=== PATIENT | female | born 1960 | race African-American/Black ===

== ENCOUNTER → 2017-04-02 | Outpatient (CLI) | payer OTHER ==
[~2017-04-02] MED LIST: ASPI-110 PO; ATEN50TA PO; CHOL100025 CHEW; HYDR-3583 PO; HYDR25TA5 PO; LOSA50TA PO; WALKER WHEELS/F1 MIS
== END ==
LOC: CPRE 12:05
PROVIDERS: ATTEND Neurological Surgery
DX: M50.10 Cervical disc disorder with radiculopathy, unspecified cervical region (principal); M48.02 Spinal stenosis, cervical region; M50.30 Other cervical disc degeneration, unspecified cervical region; M47.12 Other spondylosis with myelopathy, cervical region

== ENCOUNTER 2017-04-05 05:43 | Observation (INO) | payer OTHER ==
--- NOTE | 2017-04-04 18:33 | MH ---
cc: MANI URIBE ROHIT K. M.D. STALEY, TYLER J. MD DATE OF ADMISSION 04/05/2017 ADMISSION DIAGNOSIS Cervical spinal stenosis. HISTORY OF PRESENT ILLNESS This is a 56-year-old female who presented to us for an evaluation of neck and low back pain. She has had neck pain for 2 years, progressively getting worse. She states that the neck pain radiates into the head and causes headaches. She denies any radiculopathy in the upper extremities. She does state that she has paresthesias in the left lateral arm into the fingers, primarily the first through the fourth fingers with the thumb being the worst. She is right-handed. She has been to physical therapy 5 months ago which did not help. She states that she drops stuff with the left hand for the last 2 years. She has felt off balance and states that her left leg is numb also. She complains of low back pain for the last 2 years, progressively getting worse. She denies any radiculopathy in the lower extremities. She states that the pain does extend into bilateral upper buttocks area. She has paresthesias in the left lateral leg to the ankle. She states that she wears pads for urinary leakage for the last year. Her low back pain improves with lying down. She has had physical therapy for low back. She has been to pain management to do the injections in her back and states that she did not like this because she is prediabetic and she was very hungry after the injections and had some weight gain associated with this. She states her legs do feel weak and sometimes the left one dulce on her. She also complains of chronic left knee pain and uses a cane to ambulate, although, states that she uses a walker for better gait control. PAST MEDICAL HISTORY Significant for sleep apnea, hypertension. Knee surgery. CURRENT MEDICATIONS 1. She takes atenolol 50 milligrams b.i.d. 2. Hydrochlorothiazide 25 milligrams daily. 3. B3 5000 international units daily. ALLERGIES She has no known drug allergies. FAMILY HISTORY Her father is at [id number], had cancer. Her mother is at [id number], had kidney disease. She has a brother who is at 17-miohy-yir of myocardial infarction. She has two sisters alive and two brothers that are alive. SOCIAL HISTORY She has two children. She lives alone. She does not smoke. She does not drink alcohol. REVIEW OF SYSTEMS CONSTITUTIONAL: She denies any fever or chills. EARS/NOSE/THROAT: No pharyngitis, exudates or bloody drainage from her nose. CARDIOVASCULAR: She denies any chest pain or palpitations. RESPIRATORY: No cough or shortness of breath. GENITOURINARY: No dysuria or urgency. Positive for urinary frequency. MUSCULOSKELETAL: Positive for neck and low back pain. SKIN: Positive for rash and itching. NEUROLOGIC: No difficulty with speech or memory. GASTROINTESTINAL: No nausea, vomiting, abdominal pain. PSYCHIATRIC: Positive for depression symptoms. No anxiety. ENDOCRINE: No polydipsia. Positive for polyuria. HEMATOLOGIC: Positive for bruising tendencies but no bleeding tendencies. PHYSICAL EXAMINATION HEAD: Normocephalic, atraumatic. NECK: Supple. No carotid bruits heard on auscultation. LUNGS: Clear to auscultation bilaterally. HEART: Regular rate and rhythm, normal S1-S2. ABDOMEN: Soft, positive bowel sounds. She is obese. SKIN: Reveals no cyanosis or erythema. MUSCULOSKELETAL: She has left iliopsoas weakness at 3-/5. Otherwise, her strength is 5/5 in the lower extremities. She has 5/5 strength in the upper extremities. NEUROLOGIC: She is awake, alert and oriented. Cranial nerves II-XII are grossly intact. Her speech is fluent. Comprehension is good. Sensation is decreased diffusely in the left upper extremity and left lower extremity in a nondermatomal pattern, otherwise, intact. Reflexes are 2+ in the upper extremities. Patellar reflexes are diminished bilaterally. Achilles reflexes are 2+ bilaterally. DATA REVIEWED MRI of the cervical spine from July 04, 2016 was reviewed with the patient. She has severe C4/C5 spinal stenosis with cord compression and associated T2-weighted myelomalacia from a disk osteophyte complex. She has moderate C5-C6 and C6-C7 stenosis although no cord compression is noted. Lumbar spine MRI from 07/04/2016 was reviewed which shows mild disk degeneration at L4-L5, L5-S1 levels without any significant spinal stenosis. IMPRESSION A 56-year-old female with progressive cervical myelopathy that she has had for 2 years with the weakness and unsteadiness and incontinence including neck pain and back pain. She has a C4-C5 stenosis with spinal cord compression with associated myelomalacia of the cord from a disk osteophyte complex. She has a lesser degree of stenosis noted at the C5-C6 and C6-C7 levels. She has mild L4-L5, L5-S1 degenerative disk disease and lumbar spine with no significant lumbar stenosis. She has failed conservative measures including physical therapy and interventional pain management. PLAN We have discussed procedure in detail which would require an anterior C4-C5 microsurgical diskectomy with fusion. We have discussed the risks along with surgery which include but no limited to bleeding, infection, muscle weakness, voice hoarseness, difficulty swallowing, heart attack, stroke blood clots, nonfusion, scar tissue formation among others. She understands that the goal of surgery for spinal cord decompression to prevent further progression of the myelopathy or spinal cord injury with any ___. She states that she will likely not be pain free since there are degenerative changes involving other levels. We have discussed the procedure using spine models in the office and all of her questions were answered to her satisfaction and no guarantees were given. She understands the risk of worsening sleep apnea, dysphagia, hoarseness, among other complications. Her lumbar spine at this point does not require any surgical intervention. The patient is requesting that we proceed, understanding the procedure as well as the risks involved and she was therefore scheduled accordingly. Dictated by: Adonis Mahmood PA-C MD ENA Savage/STEFANIA /5:53 PM /6:15 PM
[~2017-04-05] VITALS: Ht 167.6 cm; Wt 133.4 kg
[~2017-04-05 05:43] MED LIST changes: -ASPI-110 PO; -HYDR-3583 PO; -LOSA50TA PO; -WALKER WHEELS/F1 MIS
[2017-04-05] MEDS ORDERED: LACTATED RINGER'S 1000 ML IV PRN (06:30)
[2017-04-05] MEDS ORDERED: METOPROLOL TARTRATE 25 MG TAB PO PRN (06:30)
[2017-04-05] MEDS ORDERED: VANCOMYCIN HCL 1000 MG ON-CALL/NS 250 ML IV SCH ×2 (06:30)
[2017-04-05] MEDS ORDERED: SODIUM CHLOR 0.9% 1000 ML INJ 1,000 ML IV SCH (06:30)
[2017-04-05] MEDS ORDERED: POVIDONE IODINE 5% (ANTISEPSIS KIT) 4 APPLICATIONS EACH NARE PRN (06:30)
[2017-04-05] MEDS ORDERED: SODIUM CHLORID 0.9% 500 ML IV PRN (06:30)
[2017-04-05] MEDS ORDERED: CHLORHEXIDINE GLUCONATE 2 % 1 PACK (2 CLOTHS) TOPICAL PRN (06:30)
[2017-04-05] MEDS ORDERED: INSULIN HUMAN REGULAR 1,000 UNITS/10 ML VIAL SQ PRN (06:30)
[2017-04-05] MEDS ORDERED: VANCOMYCIN HCL 1000 MG VIAL ONE (06:54)
[2017-04-05] MEDS ORDERED: THROMBIN (TOPICAL) 5,000 UNIT VIAL ONE (06:54)
[2017-04-05] MEDS ORDERED: GELFOAM SIZE 100 ONE (06:55)
[2017-04-05 07:02] VITALS: BP 164/88; PULSE 58; RESP 20; TEMP 99.5; O2SAT 99
[2017-04-05] MEDS ORDERED: FAMOTIDINE 20 MG/2 ML VIAL ONE (08:17)
[2017-04-05] MEDS ORDERED: MIDAZOLAM HCL 2 MG/2 ML VIAL ONE (08:18)
[2017-04-05] MEDS ORDERED: ACETAMINOPHEN 1000 MG/100 ML VIAL IV ONE (08:18)
[2017-04-05] MEDS ORDERED: BUPIVACAINE/EPINEPHRINE 0.5% PF 30 ML VIAL INFIL ONE (09:44)
[2017-04-05] MEDS ORDERED: PROPOFOL 500 MG/50 ML BTL IV ONE (12:00)
[2017-04-05] MEDS ORDERED: LACTATED RINGER'S 1000 ML INJ 2,000 ML IV ONE (12:00)
[2017-04-05] MEDS ORDERED: PROPOFOL 200 MG/20 ML AMP IV ONE (12:00)
[2017-04-05] MEDS ORDERED: ONDANSETRON HCL 4 MG/2 ML VIAL IV PUSH ONE (12:00)
[2017-04-05] MEDS ORDERED: NEOSTIGMINE 3 MG/3 ML SYR IV ONE (12:00)
[2017-04-05] MEDS ORDERED: NS + KCL 20 MEQ INJ 1,000 ML IV SCH (12:03)
[2017-04-05] MEDS ORDERED: DO NOT ADM ANY ANTICOAGULANT DRUGS PRN (12:05)
--- NOTE | 2017-04-05 12:08 | RADRPT ---
EXAM DATE/TIME: 04/05/2017 09:21 [facility] COMPARISON: No previous studies available for comparison. INDICATIONS : C4-C5 anterior cervical fusion. Level localization. MEDICAL HISTORY : None. SURGICAL HISTORY : None. ENCOUNTER: Initial ACUITY: 1 day PAIN SCORE: Non-responsive. LOCATION: neck CONCLUSION: Lateral fluoroscopic view demonstrates temporary probe along the superior endplate anteriorly at C5. Adonis Vera MD on April 05, 2017 at 12:07 Board Certified Radiologist. This report was verified electronically.
--- NOTE | 2017-04-05 12:09 | RADRPT ---
EXAM DATE/TIME: 04/05/2017 09:21 [facility] COMPARISON: No previous studies available for comparison. INDICATIONS : Post-op C4-C5 anterior cervical fusion. MEDICAL HISTORY : None. SURGICAL HISTORY : None. ENCOUNTER: Initial ACUITY: 1 day PAIN SCORE: Non-responsive. LOCATION: neck CONCLUSION: Fluoroscopic images during placement of anterior fusion plate and intervertebral disc device at C4-5. Adonis Vera MD on April 05, 2017 at 12:07 Board Certified Radiologist. This report was verified electronically.
--- NOTE | 2017-04-05 12:12 | PD.OP ---
DO Gutierrez Peng MD Operative Report Date of Surgery: Apr 05, 2017 Preoperative Diagnosis: Severe C4-5 spinal cord compression with the myelopathy from a disc osteophyte complex Postoperative Diagnosis: Same Procedure: Anterior cervical C4-5 microdiscectomy with interbody fusion; anterior C4-5 cervical plate placement; C4-5 interbody cage placement; microsurgical technique Anesthesia: Gen. endotracheal by Andrés Frost Surgeon: Vick Bautista M.D. Rf Microwave Engineer(s): Claribel Dhaliwal Operation and Findings: Following administration of general endotracheal anesthesia with the neck maintained neutral position in a Goodhue collar, the patient received a gram of vancomycin and Decadron 10 mg intravenously. Sequential compression devices were placed in supine position on a Cuco table and all pressure points adequately padded. The head secured in a donut and anterior cervical region then shaved and prepped with Chloraprep and sterilely draped with Ioban along with the usual sterile draping. A transverse skin incision on the left side of the neck was then made after infiltrating the skin with 0.5% Marcaine with epinephrine solution extending down through the platysma. At the anterior border of the sternocleidomastoid further dissection was undertaken developing a plane between the carotid sheath laterally and the trachea esophagus medially. The prevertebral fascia was exposed and dissected out. The medial attachments of the longus colli muscles were detached and a self-retaining retractor used for exposure. Given her obesity and short neck this exposure was difficult. The C4-5 disc space was localized with a marking the disc space and using lateral fluoroscopy. [place]atham distraction screws 14 mm length were placed one in the C4 and one in the C5 body interbody distraction and exposure. There was significant disc degeneration with disc height collapse and anterior osteophytes noted at the C4-5 level and the osteophytes were resected with a Leksell and annulus incised with a 15 blade and further dissection undertaken using microtechnique with microscope magnification. Diskectomy was undertaken with pituitaries and the endplates were also decorticated with curettes and drill bit. And more posteriorly there was disk osteophyte complex significantly compressing the thecal sac along with a significant uncovertebral joint hypertrophy with foraminal stenosis which was decompressed along with removal of the posterior longitudinal ligaments at both levels. The foramen was decompressed bilaterally using a Kerrison's and palpation with a nerve hook, the exiting nerve roots were felt to be free. The area was then copiously irrigated. I then placed a Peek cage packed with local autograft bone at the C4 -5 interspace under fluoroscopy guidance. Chatham distraction pins were removed and the holes plugged with Gelfoam for hemostasis. In order to facilitate the fusion and provide stabilization, a Precision spine cervical plate was then placed with two 14 mm variable angle screws in the C4 body and two 14 mm fixed angle screws in the C5 body. The plate screw locking mechanism was then engaged. AP and lateral fluoroscopy confirmed good placement of the construct and the retractor was then removed. Muscular bleeding points were cauterized with bipolar cautery and Gelfoam was then also used for hemostasis which was removed. The platysma was then approximated using 3-0 Vicryl interrupted stitches and 3-0 Vicryl subcuticular stitch also placed in an interrupted fashion, and final skin closure was with Mastisol and Steri-Strips. Sterile dressing was then applied. The patient was then extubated and taken to the recovery room. There are no intraoperative complications and all sponge and needle counts were correct at the end of procedure. Estimated blood loss was about 100 cc. The patient did undergo intraoperative neurologic monitoring which remained stable throughout the surgery. Vick Bautista MD Apr 05, 2017 12:12
[2017-04-05] MEDS ORDERED: MAGNESIUM HYDROXIDE SUSP 30 ML CUP PO PRN (12:15)
[2017-04-05] MEDS ORDERED: ACETAMINOPHEN/HYDROcodone 325 MG/10 MG TAB PO PRN ×2 (12:15)
[2017-04-05] MEDS ORDERED: METOCLOPRAMIDE HCL 10 MG/2 ML VIAL IVS PRN (12:15)
[2017-04-05] MEDS ORDERED: RESP: ALBUTEROL 2.5 MG/3 ML NEB (PRN) NEB (12:15)
[2017-04-05] MEDS ORDERED: CYCLOBENZAPRINE HCL 10 MG TAB PO PRN (12:15)
[2017-04-05] MEDS ORDERED: MORPHINE SULFATE 4 MG/ML INJ IV PRN (12:15)
[2017-04-05] MEDS ORDERED: ACETAMINOPHEN 325 MG TAB PO PRN (12:15)
[2017-04-05] MEDS ORDERED: ONDANSETRON HCL 4 MG/2 ML VIAL IV PRN (12:15)
[2017-04-05] MEDS ORDERED: MENTHOL LOZENGE BUCCAL PRN (12:15)
[2017-04-05] MEDS ORDERED: cloNIDine HCL 0.1 MG TAB PO PRN (12:15)
[2017-04-05] MEDS ORDERED: SODIUM CHLORIDE 0.9% FLUSH 10 ML FLUSH IV FLUSH PRN (12:15)
[2017-04-05] MEDS ORDERED: ALUMINUM/MAGNESIUM/SIMETH 30 ML CUP PO PRN (12:15)
[2017-04-05 14:00] VITALS: BP 184/98; PULSE 63; RESP 17; TEMP 95.9; O2SAT 91
[2017-04-05] MEDS ORDERED: *morphine SULFATE 8 MG/ML PERIprocedure ONLY ONE (14:25)
[2017-04-05] MEDS: DEXAMETHASONE SOD PHOS 4 MG/ML VIAL IV SCH ×2 (15:00→21:00)
[2017-04-05] MEDS ORDERED: fentaNYL CITRATE 250 MCG/5 ML AMP ONE (15:32)
[2017-04-05 17:27] VITALS: O2SAT 92
[2017-04-05 19:40] VITALS: BP 189/94; PULSE 57; RESP 16; TEMP 97.7; O2SAT 98
[2017-04-05] MEDS ORDERED: ZOLPIDEM TARTRATE 5 MG TAB PO PRN (21:00)
[2017-04-06] VITALS: BP 161/84; PULSE 54; RESP 17; TEMP 96.2; O2SAT 95
[2017-04-06] MEDS: DOCUSATE SODIUM 100 MG CAP PO SCH ×2 (00:08→09:26)
[2017-04-06] MEDS: ATENOLOL 50 MG TAB PO SCH ×2 (00:08→09:26)
[2017-04-06] MEDS: SODIUM CHLORIDE 0.9% FLUSH 10 ML FLUSH IV FLUSH SCH ×2 (00:09→09:00)
[2017-04-06] MEDS: DEXAMETHASONE SOD PHOS 4 MG/ML VIAL IV SCH (03:00)
[2017-04-06 04:00] VITALS: BP 142/78; PULSE 55; RESP 16; TEMP 97.3; O2SAT 95
[2017-04-06 08:00] VITALS: BP 152/84; PULSE 66; RESP 19; TEMP 96.9; O2SAT 100
[2017-04-06] MEDS ORDERED: HYDROCHLOROTHIAZIDE 25 MG TAB PO SCH (09:00)
[2017-04-06] MEDS ORDERED: PANTOPRAZOLE SOD 40 MG DELAYED RELEASE TAB PO SCH (09:00)
[2017-04-06 11:29] VITALS: BP 129/75; PULSE 60; RESP 19; TEMP 96.6; O2SAT 98
--- NOTE | 2017-04-06 12:38 | HHI.NSPN ---
History Chief Complaint: Mild incisional soreness. Interval History 04/06/17: Pt underwent a C4/C5 anterior cervical fusion on 04/05/17. She has mild incisional soreness. She states the paresthesias in her left hand are improving. She states she has paresthesias in her left leg that are stable. She states she is ambulating independently with a walker. She is requesting discharge home. Review of Systems General: Negative for: fever, chills, insomnia Respiratory: Negative for: shortness of breath, cough, sputum Cardiovascular: Negative for: chest pain Gastrointestinal: Negative for: nausea, vomitting, diarrhea, constipation Exam Results Vital Signs Date Time Temp Pulse Resp B/P Pulse Ox O2 Delivery O2 Flow Rate FiO2 04/06/17 11:29 96.6 60 19 129/75 98 04/05/17 21:58 21 04/05/17 17:27 cpap 04/05/17 14:30 2 Intake and Output 04/05/17 04/05/17 04/06/17 08:00 16:00 00:00 Intake Total 2250 ml 480 ml Output Total 250 ml Balance 2000 ml 480 ml Physical Examination Resp: CTA bilaterally Heart: NSR no murmurs Abd: Soft positive bs Skin: No cyanosis or erythema. No signs of infection. New bandage place. Muscle: Moves all 4 extremities with good strength. Neuro: Pt awake and alert. Follows commands well. Speech clear and appropriate. Lab, Micro, Other Results Last Impressions Cervical Spine X-Ray 04/05/17 0000 Signed Impressions: Service Date/Time: March 09:21 - CONCLUSION: Lateral fluoroscopic view demonstrates temporary probe along the superior endplate anteriorly at C5. Adonis Vera MD 04/05/17 04/05/17 04/06/17 14:59 22:59 06:59 Intake Total 2000 ml 730 ml 360 ml Output Total 250 ml Balance 1750 ml 730 ml 360 ml Intake Oral 480 ml 360 ml IV Total 250 ml Other 2000 ml Output Estimated Blood Loss 250 ml # Voids 3 1 2 Medical Decision Making Impression and Plan A: 56 y/o FM s/p C4/C5 ACF with plate placement. P: Discharge pt home Discussed incision care Discussed restrictions Follow up as scheduled in 6 weeks with xrays prior to visit. Adonis Mahmood Apr 06, 2017 12:38
[2017-04-06] MEDS ORDERED: HYDR-3583 PO (12:42)
[2017-04-06] MEDS ORDERED: WALKER WHEELS/F1 MIS (12:43)
== END 2017-04-06 15:08 | disposition home or self-care (01) ==
LOC: HSDC 05:43 → HSDI 12:06 → N06A 15:55
PROVIDERS: ADMIT Neurological Surgery; ATTEND Neurological Surgery
DX: M48.02 Spinal stenosis, cervical region (principal); G95.89 Other specified diseases of spinal cord; M25.78 Osteophyte, vertebrae; R51 Headache; M51.37 Other intervertebral disc degeneration, lumbosacral region; R53.1 Weakness; M25.562 Pain in left knee; G89.29 Other chronic pain; I10 Essential (primary) hypertension; G47.30 Sleep apnea, unspecified; E66.9 Obesity, unspecified; Z79.899 Other long term (current) drug therapy
CPT/HCPCS: 00600; 20936; 22551; 22853; 72020; 72040; 76000; 94150; C1713; G0378; J0131; J0690; J1100; J2250; J2270; J2405; J2710; J3010; J3370; J3480; J7050; J7120; L0150